=== PATIENT | female | born 1945 | race Caucasian/White ===

== ENCOUNTER 2016-05-12 22:12 | Emergency (ER) | payer MEDICARE, MEDICAID ==
[2016-05-12] MEDS ORDERED: OLANZAPINE 5 MG TABLET ONE (23:17)
[2016-05-12] MEDS ORDERED: HYDROCODONE/ACETAMINOPHEN 5/325MG TABLET ONE (23:17)
[2016-05-13] MEDS ORDERED: ALBUTEROL/IPRATROPIUM 2.5/0.5 MG 3 ML/EACH DOSE ONE (00:49)
[2016-05-13] MEDS ORDERED: ALBUTEROL NEB 2.5 MG/3 ML VIAL.NEB NEB ONE (01:21)
--- NOTE | 2016-05-13 08:22 | CT ---
C-SPINE W/O CON COMPARISON: None. HISTORY: Acute on chronic neck pain Technique: Using a [employer] [address] scanner, images obtained through the cervical spine. An automated dose reduction technique was used to minimize patient radiation dose. Dose information: CTDIvol (mGy) 8.60 DLP(mGycm): 163.20 FINDINGS: Vertebral alignment: Normal. C1-2 alignment: Normal. Craniocervical junction: Normal. Vertebral bodies: No fracture. Anterolateral osteophytes, C3-4, C4-5, C5-6, and C6-7. Intervertebral discs: Moderate narrowing, C3-4, C4-5, C5-6, and C6-7. Spinal canal: Normal. Facet joints and posterior arches: Narrowing and osteophytes on the left at C2-3. Prevertebral soft tissues: Normal Lung apices and superior mediastinum: Normal superior mediastinum. Emphysema in both lung apices. Airway: Normal. IMPRESSION: 1. No acute finding. 2. Moderate spondylosis with disc narrowing and osteophytes, C3-4, C4-5, C5-6, and C6-7. 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 3. Emphysema and the apices of both upper lobes. Preliminary report by [facility] radiologist Miguel Lucero M.D. 05/13/2016 at 00:17
--- NOTE | 2016-05-13 08:32 | RAD ---
History: Cough, dyspnea, COPD. Comparison: 11/08/2015. Technique: 2 views Findings: 2 views of the chest were performed demonstrating findings of prominent pulmonary hyperinflation. The heart size is stable. There is evidence of increased bibasilar density, more conspicuous than the appearance on prior exam. No effusion is visualized. The hilar and mediastinal structures appear to be stable. Impression: 1. Increased bibasilar densities suggesting developing pulmonary infiltrates. 2. Findings of pulmonary hyperinflation, suggesting chronic obstructive pulmonary disease.
== END 2016-05-13 08:39 | disposition home or self-care (01) ==
LOC: ED 22:12
DX: M54.2 Cervicalgia (principal); G89.29 Other chronic pain; J44.1 Chronic obstructive pulmonary disease with (acute) exacerbation; F29 Unspecified psychosis not due to a substance or known physiological condition; F17.210 Nicotine dependence, cigarettes, uncomplicated
CPT/HCPCS: 71020; 72125; 94640 ×2; 99284; 99283; A9270 ×2

== ENCOUNTER 2016-06-21 21:08 | Emergency (ER) | payer MEDICARE, MEDICAID | END 2016-06-21 23:52 | disposition home or self-care (01) | LOC: ED 21:08 | DX: J06.9 Acute upper respiratory infection, unspecified (principal); R06.2 Wheezing; F17.210 Nicotine dependence, cigarettes, uncomplicated ==